=== PATIENT | female | born 1975 | race Caucasian/White ===

== ENCOUNTER 2021-07-03 19:53 | Emergency (ER) | payer OTHER | END 2021-07-04 00:42 | disposition home or self-care (01) | LOC: FER 19:53 | DX: S83.91XA Sprain of unspecified site of right knee, initial encounter (principal); W10.9XXA Fall (on) (from) unspecified stairs and steps, initial encounter; Y92.009 Unspecified place in unspecified non-institutional (private) residence as the place of occurrence of the external cause ==

== ENCOUNTER 2022-04-20 05:22 | Day surgery (SDC) | payer OTHER ==
[~2022-04-20] VITALS: Ht 173 cm; Wt 87.0 kg
[~2022-04-20 05:22] MED LIST: ACETAMINOPHEN500 M1 PO; NORCO 5-325 TA1 EACH PO
[2022-04-21 07:13] LABS: BASOPHIL 0.1 % (0-2); EOSINOPHIL 0.1 % (0-5); HGB 10.5 g/dl (12.5-16.0); LYMPHOCYTE 18.8 % (15-48); MCH 32.7 pg (25.0-31.0); MCHC 33.9 g/dL (32.0-36.0); MCV 96.6 fL (78.0-100.0); MONOCYTE 8.8 % (0-12); MPV 9.6 fL (6.0-9.5); NEUTROPHIL 71.8 % (41-80); NRBC 0; PLT 231 K/uL (150-400); RBC 3.21 M/uL (4.20-5.40); RDW 11.9 % (11.5-14.0); WBC 11.2 K/uL (4.0-10.5)
[2022-04-21 07:21] LABS: BUN/CREAT RATIO (CALC) 8.4 RATIO; CREATININE 0.83 mg/dL (0.51-0.95)
[2022-04-21] MEDS ORDERED: FEOSOL325 MG PO (08:31)
[2022-04-21] MEDS ORDERED: CHILDREN'S ASPI81 MG PO (08:31)
[2022-04-21] MEDS ORDERED: ONDANSETRON HCL4 MG PO (10:30)
== END 2022-04-21 15:20 | disposition home or self-care (01) ==
LOC: FAS 05:22 → FMS 09:20 → FAS 04-21 15:20
PROVIDERS: Orthopaedic Surgery
DX: M17.11 Unilateral primary osteoarthritis, right knee (principal); T84.84XA Pain due to internal orthopedic prosthetic devices, implants and grafts, initial encounter
CPT/HCPCS: 36415; 73560; 80048; 85025; 86850; 86900; 86901; 94010; 94760; 97162; 97165; 97530-GP; C1713; C1776; J0171; J0697; J1100; J1170; J1885; J2250; J2270; J2405; J2704; J2795; J3010; J7120